=== PATIENT | female | born 2000 | race Caucasian/White ===

== ENCOUNTER 2020-04-02 10:43 | Inpatient (IN) | payer BC ==
[~2020-04-02] VITALS: Ht 157.5 cm; Wt 67.1 kg
[2020-04-02 11:40] VITALS: BP 108/65
[2020-04-02] MEDS ORDERED: HYDROcodone/APAP 7.5/325 MG 1 TAB ONE (12:09)
[2020-04-02] MEDS: NACL 0.9% 1,000 ML IV SCH ×2 (13:10→20:40)
[2020-04-02 18:03] LABS: BASOPHILS # (AUTO) 0.1 K/uL (0.00-0.22); BASOPHILS % (AUTO) 0.5 % (0.0-2.0); EOSINOPHILS % (AUTO) 0.1 % (0.0-4.0); HEMATOCRIT 35.5 % (36-48); HEMOGLOBIN 11.8 g/dL (12.0-16.0); LYMPHOCYTES # (AUTO) 2.4 K/uL (2.5-16.5); MEAN CORPUSCULAR HEMOGLOBIN 30 pg (27-31); MEAN CORPUSCULAR HGB CONC 33 g/dL (33-37); MEAN CORPUSCULAR VOLUME 90.7 fL (80-94); MONOCYTES # (AUTO) 0.5 K/uL (0.8-1.0); MONOCYTES % (AUTO) 3.8 % (1.7-9.3); NEUTROPHILS # (AUTO) 9.7 K/uL (1.8-7.7); NEUTROPHILS % (AUTO) 76.6 % (42.2-75.2); PLATELET COUNT (AUTO) 252 K/uL (140-450); RED BLOOD CELL COUNT(AUTO) 3.92 MIL/uL (4.20-5.40); RED CELL DISTRIBUTION WIDTH 13.7 % (11.6-13.7); WHITE BLOOD COUNT (AUTO) 12.7 K/uL (4.8-10.8)
[2020-04-02 18:18] LABS: ANION GAP 15.7 (8-16); CARBON DIOXIDE 23.1 mmol/L (21-32); CREATININE 0.5 mg/dL (0.6-1.3); POTASSIUM 3.8 mmol/L (3.5-5.1); TOTAL BILIRUBIN 0.3 mg/dL (0.0-1.0)
[2020-04-02 20:36] LABS: APPEARANCE,URINE CLEAR (CLEAR); BILIRUBIN,URINE NEGATIVE (NEGATIVE); BLOOD, URINE NEGATIVE (NEGATIVE); COLOR,URINE YELLOW (YELLOW); LEUKOCYTE ESTERASE ,URINE TRACE (NEGATIVE); NITRITE, URINE NEGATIVE (NEGATIVE); PH,URINE 5.5 (5.0-9.0); UGLUCOSE NEGATIVE (NEGATIVE)
[2020-04-03] MEDS: NACL 0.9% 1,000 ML IV SCH (04:37)
--- NOTE | 2020-04-03 08:48 | NUR ---
PATIENT HAS BEEN SCREENED AND CATEGORIZED LOW NUTRITION RISK. PATIENT WILL BE SEEN WITHIN 7 DAYS OF ADMISSION. 04/09/[address]
[2020-04-03] MEDS ORDERED: cefTRIAXone 1,000 MG VIAL ONE (10:38)
== END 2020-04-03 12:10 | disposition home or self-care (01) | DRG 566 ==
LOC: MFCC 10:43 → OBSVTOIN 17:15
PROVIDERS: ADMIT Obstetrics & Gynecology; ATTEND Obstetrics & Gynecology
DX: O98.513 Other viral diseases complicating pregnancy, third trimester (principal); O41.03X0 Oligohydramnios, third trimester, not applicable or unspecified; O23.43 Unspecified infection of urinary tract in pregnancy, third trimester; Z3A.37 37 weeks gestation of pregnancy; U07.1 COVID-19
CPT/HCPCS: G0378 ×7; 36415; 76815; 80053; 81003; 85025; 86592; 86886; 86900; 86901; 87653-90; J0696; J7060; Q0092; U0003-CS

== ENCOUNTER 2020-04-13 16:13 | Observation (INO) | payer BC, SELFPAY ==
[~2020-04-13] VITALS: Ht 157.5 cm; Wt 67.1 kg
[2020-04-13 17:25] VITALS: BP 110/70
== END 2020-04-13 18:25 | disposition home or self-care (01) ==
LOC: MFCC 16:13
PROVIDERS: ADMIT Obstetrics & Gynecology; ATTEND Obstetrics & Gynecology
DX: Z34.93 Encounter for supervision of normal pregnancy, unspecified, third trimester (principal); Z20.828 Contact with and (suspected) exposure to other viral communicable diseases; Z3A.38 38 weeks gestation of pregnancy
CPT/HCPCS: 59025; 87426; G0378

== ENCOUNTER 2020-04-21 07:54 | Inpatient (IN) | payer BC, SELFPAY ==
[~2020-04-21] VITALS: Ht 153.7 cm; Wt 67.6 kg
--- NOTE | 2020-04-21 08:48 | NUR ---
PATIENT HAS BEEN SCREENED AND CATEGORIZED LOW NUTRITION RISK. PATIENT WILL BE SEEN WITHIN 7 DAYS OF ADMISSION. 04/27/[address]
[2020-04-21] MEDS ORDERED: OXYTOCIN 20 UNITS in LACTATED RINGERS 1,000 ML IV SCH (09:00)
[2020-04-21] MEDS ORDERED: MORPHINE SULFATE 10 MG/ML VIAL IVP PRN (09:00)
[2020-04-21] MEDS ORDERED: PROMETHAZINE 25 MG/ML VIAL IVP PRN (09:00)
[2020-04-21] MEDS ORDERED: METHYLERGONOVINE 0.2 MG/ML AMP IM SCH (09:05)
[2020-04-21] MEDS ORDERED: MISOPROSTOL 25 MCG TAB ONE (09:36)
[2020-04-21 09:37] LABS: BASOPHILS # (AUTO) 0.1 K/uL (0.00-0.22); BASOPHILS % (AUTO) 0.6 % (0.0-2.0); EOSINOPHILS % (AUTO) 0.3 % (0.0-4.0); HEMATOCRIT 34.4 % (36-48); HEMOGLOBIN 11.5 g/dL (12.0-16.0); LYMPHOCYTES # (AUTO) 1.9 K/uL (2.5-16.5); LYMPHOCYTES % (AUTO) 16.2 % (20.5-51.1); MEAN CORPUSCULAR HEMOGLOBIN 30 pg (27-31); MEAN CORPUSCULAR HGB CONC 34 g/dL (33-37); MEAN CORPUSCULAR VOLUME 90.1 fL (80-94); MONOCYTES # (AUTO) 0.5 K/uL (0.8-1.0); MONOCYTES % (AUTO) 4.3 % (1.7-9.3); NEUTROPHILS # (AUTO) 9.3 K/uL (1.8-7.7); NEUTROPHILS % (AUTO) 78.6 % (42.2-75.2); PLATELET COUNT (AUTO) 191 K/uL (140-450); RED BLOOD CELL COUNT(AUTO) 3.82 MIL/uL (4.20-5.40); RED CELL DISTRIBUTION WIDTH 13.8 % (11.6-13.7); WHITE BLOOD COUNT (AUTO) 11.9 K/uL (4.8-10.8)
[2020-04-21 09:48] LABS: ALBUMIN 2.7 g/dL (3.4-5.0); ANION GAP 14.1 (8-16); CARBON DIOXIDE 24.5 mmol/L (21-32); CREATININE 0.6 mg/dL (0.6-1.3); POTASSIUM 3.6 mmol/L (3.5-5.1); TOTAL BILIRUBIN 0.2 mg/dL (0.0-1.0)
[2020-04-21] MEDS: LACTATED RINGERS 1,000 ML IV SCH ×2 (10:11→16:41)
[2020-04-21 10:18] VITALS: BP 124/67
[2020-04-21 11:24] LABS: APPEARANCE,URINE CLEAR (CLEAR); BILIRUBIN,URINE NEGATIVE (NEGATIVE); BLOOD, URINE 2+ (NEGATIVE); COLOR,URINE YELLOW (YELLOW); LEUKOCYTE ESTERASE ,URINE TRACE (NEGATIVE); NITRITE, URINE NEGATIVE (NEGATIVE); PH,URINE 7.5 (5.0-9.0); UGLUCOSE NEGATIVE (NEGATIVE)
[2020-04-21 11:37] LABS: WBC,URINE 0-5 /HPF (0-5)
[2020-04-21] MEDS ORDERED: MISOPROSTOL 25 MCG TAB VG SCH (12:00)
[2020-04-21] MEDS ORDERED: OXYTOCIN 20 UNITS/LR PREMIX 1,000 ML IV ONE (14:37)
[2020-04-22] MEDS: LACTATED RINGERS 1,000 ML IV SCH ×2 (09:47→17:18)
[2020-04-22] MEDS ORDERED: ROPIVACAINE 0.2%/NS PREMIX 200 ML EPI ONE (10:26)
[2020-04-22] MEDS ORDERED: ROPIVACAINE 0.2%/NS PREMIX 200 ML EPI SCH (13:35)
[2020-04-22] MEDS ORDERED: IBUPROFEN 600 MG TAB PO PRN (22:35)
[2020-04-22] MEDS ORDERED: BENZOCAINE/MENTHOL 20%-0.5% 60 GM CAN TP PRN (22:35)
[2020-04-22] MEDS ORDERED: METHYLERGONOVINE 0.2 MG/ML AMP IM PRN (22:35)
[2020-04-22] MEDS ORDERED: OXYTOCIN 10 UNITS/ML VIAL IM PRN (22:35)
[2020-04-22] MEDS ORDERED: oxyCODONE/APAP 5/325 MG 1 TAB TAB PO PRN (22:35)
[2020-04-23] MEDS: IBUPROFEN 800 MG TAB PO PRN ×2 (02:25→23:28)
[2020-04-23 05:42] LABS: HEMATOCRIT 28.4 % (36-48); HEMOGLOBIN 9.5 g/dL (12.0-16.0)
[2020-04-23] MEDS ORDERED: MORPHINE SULFATE 5 MG/ML VIAL IVP PRN (19:35)
[2020-04-24] MEDS ORDERED: FERR-18 PO (11:25)
[2020-04-24] MEDS ORDERED: IBUP-2213 PO (11:26)
== END 2020-04-24 13:40 | disposition home or self-care (01) | DRG 560 ==
LOC: MFCC 07:54 → OBSVTOIN 17:43 → MFCC 04-22 21:25
PROVIDERS: ADMIT Obstetrics & Gynecology; ATTEND Obstetrics & Gynecology
PROC: 10907ZC Drainage of Amniotic Fluid, Therapeutic from Products of Conception, Via Natural or Artificial Opening (ICD-10-PCS; principal; 2020-04-22)
PROC: 3E0R3BZ Introduction of Anesthetic Agent into Spinal Canal, Percutaneous Approach (ICD-10-PCS; 2020-04-22)
PROC: 00HU33Z Insertion of Infusion Device into Spinal Canal, Percutaneous Approach (ICD-10-PCS; 2020-04-22)
PROC: 0W8NXZZ Division of Female Perineum, External Approach (ICD-10-PCS; 2020-04-22)
PROC: 0HQ9XZZ Repair Perineum Skin, External Approach (ICD-10-PCS; 2020-04-22)
PROC: 10E0XZZ Delivery of Products of Conception, External Approach (ICD-10-PCS; 2020-04-22)
DX: O70.0 First degree perineal laceration during delivery (principal); Z37.0 Single live birth; Z3A.40 40 weeks gestation of pregnancy
CPT/HCPCS: 36415; 59409; 80053; 81001; 85018; 85025; 86592; 86886; 86900; 86901; G0378; J2590; J2795; J7120

== ENCOUNTER 2020-12-12 12:39 | Emergency (ER) | payer BC, SELFPAY ==
[~2020-12-12] VITALS: Ht 157.5 cm; Wt 59.0 kg
[2020-12-12 12:39] VITALS: BP 115/71
[~2020-12-12 12:39] MED LIST: FERR-18 PO; IBUP-2213 PO
--- NOTE | 2020-12-12 12:39 | NUR ---
Patient BIBA ALS, transferred to bed 4. RN evaluating the patient at bedside.
--- NOTE | 2020-12-12 12:43 | NUR ---
20/F BIBA WITH C/O [facility]ARP 8/10 MENSTRUAL CRAMPS AFTER STARTING HER PERIOD THIS MORNING. PATIENT STATES SHE WAS AT HER HUSBANDS [employer] HOUSE WHEN SHE BEGAN TO FEEL DIZZY AND LIGHT HEADED AND NUMBNESS IN HER HANDS AND FEET, STATES HER FAMILY GAVE HER A COKE TO DRINK AND SHE BEGAN TO FEEL BETTER. PATIENT STATES SHE IS NOT BLEEDING MORE THAN HER USUAL FOR HER PERIOD BUT STATES THESE ARE THE WORST CRAMPS SHES FELT BEFORE. PATIENT DENIES ANY LOC AND STATES SHE REMEMBERS THE ENTIRE EPISODE.
[2020-12-12 13:01] LABS: HEMATOCRIT 41.5 % (36-48); HEMOGLOBIN 13.6 g/dL (12.0-16.0); MEAN CORPUSCULAR HEMOGLOBIN 29 pg (27-31); MEAN CORPUSCULAR HGB CONC 33 g/dL (33-37); MEAN CORPUSCULAR VOLUME 87.2 fL (80-94); PLATELET COUNT (AUTO) 313 K/uL (140-450); RED BLOOD CELL COUNT(AUTO) 4.76 MIL/uL (4.20-5.40); RED CELL DISTRIBUTION WIDTH 14.3 % (11.6-13.7); WHITE BLOOD COUNT (AUTO) 22.1 K/uL (4.8-10.8)
--- NOTE | 2020-12-12 13:06 | NUR ---
Patient being evaluated by physician at bedside.
[2020-12-12 13:27] LABS: ALBUMIN 4.6 g/dL (3.4-5.0); ANION GAP 13.8 (8-16); CARBON DIOXIDE 25.7 mmol/L (21-32); CREATININE 0.8 mg/dL (0.6-1.3); POTASSIUM 3.5 mmol/L (3.5-5.1); TOTAL BILIRUBIN 0.3 mg/dL (0.0-1.0)
--- NOTE | 2020-12-12 13:30 | NUR ---
Lab at bedside.
--- NOTE | 2020-12-12 14:09 | NUR ---
Dr. Vanessa is reevaluating the patient at bedside.
[2020-12-12 14:28] VITALS: BP 115/71
--- NOTE | 2020-12-12 14:28 | NUR ---
Patient discharged with v/s stable. Written and verbal after care instructions given and explained. Patient verbalized understanding. Ambulatory with steady gait. All questions addressed prior to discharge. Advised to follow up with PMD.
[2020-12-12 15:04] LABS: LYMPHOCYTES % (MANUAL) 8 % (20-46); MONOCYTES % (MANUAL) 4 % (5-12)
== END 2020-12-12 14:28 | disposition home or self-care (01) ==
LOC: MED 12:39
DX: R55 Syncope and collapse (principal); R10.30 Lower abdominal pain, unspecified
CPT/HCPCS: 36415; 80053; 81002; 81025; 85025; 99283

== ENCOUNTER 2022-03-14 04:55 | Observation (INO) | payer BC ==
[~2022-03-14] VITALS: Ht 157.5 cm; Wt 65.8 kg
[2022-03-14 06:25] VITALS: BP 110/77
[2022-03-14] MEDS ORDERED: METHYLERGONOVINE 0.2 MG/ML AMP IM PRN (21:35)
[2022-03-14] MEDS ORDERED: CARBOPROST 250 MCG/ML AMP IM PRN (21:35)
[2022-03-14] MEDS ORDERED: OXYTOCIN 20 UNITS in LACTATED RINGERS 1,000 ML IV SCH (21:35)
[2022-03-14] MEDS ORDERED: ONDANSETRON 4 MG/2 ML VIAL IVP PRN (21:35)
[2022-03-14] MEDS ORDERED: NALBUPHINE 10 MG/ML AMP IVP PRN (21:35)
[2022-03-14] MEDS ORDERED: LACTATED RINGERS 1,000 ML IV SCH (21:35)
[2022-03-14 21:45] LABS: BASOPHILS # (AUTO) 0.1 K/uL (0.00-0.22); BASOPHILS % (AUTO) 0.8 % (0.0-2.0); EOSINOPHILS % (AUTO) 0.1 % (0.0-4.0); HEMATOCRIT 33.4 % (36-48); HEMOGLOBIN 10.6 g/dL (12.0-16.0); LYMPHOCYTES # (AUTO) 2.6 K/uL (2.5-16.5); LYMPHOCYTES % (AUTO) 19.5 % (20.5-51.1); MEAN CORPUSCULAR HEMOGLOBIN 27 pg (27-31); MEAN CORPUSCULAR HGB CONC 32 g/dL (33-37); MEAN CORPUSCULAR VOLUME 83.6 fL (80-94); MONOCYTES # (AUTO) 0.5 K/uL (0.8-1.0); MONOCYTES % (AUTO) 3.7 % (1.7-9.3); NEUTROPHILS # (AUTO) 10.1 K/uL (1.8-7.7); NEUTROPHILS % (AUTO) 75.9 % (42.2-75.2); PLATELET COUNT (AUTO) 269 K/uL (140-450); RED BLOOD CELL COUNT(AUTO) 3.99 MIL/uL (4.20-5.40); RED CELL DISTRIBUTION WIDTH 13.8 % (11.6-13.7); WHITE BLOOD COUNT (AUTO) 13.4 K/uL (4.8-10.8)
[2022-03-14 22:44] LABS: ALBUMIN 2.9 g/dL (3.4-5.0); CARBON DIOXIDE 20.8 mmol/L (21-32); CREATININE 0.5 mg/dL (0.6-1.3); POTASSIUM 3.8 mmol/L (3.5-5.1); TOTAL BILIRUBIN 0.3 mg/dL (0.0-1.0)
[2022-03-16 07:08] LABS: HEPATITIS B SURFACE ANTIGEN Negative (Negative)
== END 2022-03-14 10:20 | disposition home or self-care (01) ==
LOC: MLD 04:55
PROVIDERS: ADMIT Obstetrics & Gynecology; ATTEND Obstetrics & Gynecology
DX: O99.891 Other specified diseases and conditions complicating pregnancy (principal); M54.9 Dorsalgia, unspecified; O26.893 Other specified pregnancy related conditions, third trimester; R10.9 Unspecified abdominal pain; Z3A.37 37 weeks gestation of pregnancy
CPT/HCPCS: 36415; 80053; 85025; 86592; 86762; 87340; G0378; 59025; 81000; J2590; J7120

== ENCOUNTER 2022-03-14 16:05 | Inpatient (IN) | payer BC ==
[~2022-03-14] VITALS: Ht 157.5 cm; Wt 65.8 kg
[2022-03-14] MEDS ORDERED: METHYLERGONOVINE 0.2 MG/ML AMP IM PRN (16:35)
[2022-03-14] MEDS: LACTATED RINGERS 1,000 ML IV SCH ×3 (16:35→23:17)
[2022-03-14] MEDS ORDERED: CARBOPROST 250 MCG/ML AMP IM PRN (16:35)
[2022-03-14] MEDS ORDERED: OXYTOCIN 20 UNITS in LACTATED RINGERS 1,000 ML IV SCH (16:35)
[2022-03-14] MEDS ORDERED: ROPIVACAINE 0.2%/NS PREMIX 200 ML EPI ONE (16:40)
[2022-03-14 16:54] LABS: BASOPHILS % (AUTO) 0.3 % (0.0-2.0); EOSINOPHILS % (AUTO) 0.1 % (0.0-4.0); HEMATOCRIT 32.7 % (36-48); HEMOGLOBIN 10.6 g/dL (12.0-16.0); LYMPHOCYTES # (AUTO) 2.4 K/uL (2.5-16.5); LYMPHOCYTES % (AUTO) 18.6 % (20.5-51.1); MEAN CORPUSCULAR HEMOGLOBIN 27 pg (27-31); MEAN CORPUSCULAR HGB CONC 33 g/dL (33-37); MEAN CORPUSCULAR VOLUME 83.3 fL (80-94); MONOCYTES # (AUTO) 0.5 K/uL (0.8-1.0); NEUTROPHILS # (AUTO) 9.9 K/uL (1.8-7.7); PLATELET COUNT (AUTO) 274 K/uL (140-450); RED BLOOD CELL COUNT(AUTO) 3.92 MIL/uL (4.20-5.40); RED CELL DISTRIBUTION WIDTH 13.9 % (11.6-13.7); WHITE BLOOD COUNT (AUTO) 12.8 K/uL (4.8-10.8)
[2022-03-14 16:55] LABS: APPEARANCE,URINE SL CLOUDY (CLEAR); BILIRUBIN,URINE NEGATIVE (NEGATIVE); BLOOD, URINE NEGATIVE (NEGATIVE); COLOR,URINE YELLOW (YELLOW); LEUKOCYTE ESTERASE ,URINE NEGATIVE (NEGATIVE); NITRITE, URINE NEGATIVE (NEGATIVE); UGLUCOSE NEGATIVE (NEGATIVE)
[2022-03-14] MEDS ORDERED: ROPIVACAINE 0.2%/NS PREMIX 200 ML EPI SCH (17:00)
[2022-03-14 17:07] LABS: PROTHROMBIN TIME 8.7 secs (10.8-13.4)
[2022-03-14 17:08] LABS: ALBUMIN 2.8 g/dL (3.4-5.0); ANION GAP 13.2 (8-16); CARBON DIOXIDE 23.6 mmol/L (21-32); CREATININE 0.4 mg/dL (0.6-1.3); POTASSIUM 3.8 mmol/L (3.5-5.1); TOTAL BILIRUBIN 0.3 mg/dL (0.0-1.0)
[2022-03-15] MEDS: LACTATED RINGERS 1,000 ML IV SCH ×2 (03:38→08:13)
[2022-03-15] MEDS ORDERED: OXYTOCIN 20 UNITS/LR PREMIX 1,000 ML IV ONE (05:42)
[2022-03-15] MEDS ORDERED: ROPIVACAINE 0.2%/NS PREMIX 200 ML EPI ONE (05:49)
--- NOTE | 2022-03-15 09:04 | NUR ---
PATIENT HAS BEEN SCREENED AND CATEGORIZED LOW NUTRITION RISK. PATIENT WILL BE SEEN WITHIN 7 DAYS OF ADMISSION. 03/21/[address]
[2022-03-15] MEDS ORDERED: METHYLERGONOVINE 0.2 MG TAB PO PRN (10:15)
[2022-03-15] MEDS ORDERED: IBUPROFEN 800 MG TAB PO PRN (10:15)
[2022-03-15] MEDS ORDERED: METHYLERGONOVINE 0.2 MG/ML AMP IM PRN (10:15)
[2022-03-15] MEDS ORDERED: TEMAZEPAM 15 MG CAP PO PRN (10:15)
[2022-03-15] MEDS ORDERED: BENZOCAINE/MENTHOL 20%-0.5% 60 GM CAN TP PRN (10:15)
[2022-03-15] MEDS ORDERED: oxyCODONE/APAP 5/325 MG 1 TAB TAB PO PRN ×2 (10:15)
[2022-03-15] MEDS ORDERED: DOCUSATE SOD/SENNA 50/8.6 MG 1 TAB PO SCH (21:00)
[2022-03-16 08:45] LABS: HEMATOCRIT 30.7 % (36-48)
== END 2022-03-17 15:15 | disposition home or self-care (01) | DRG 560 ==
LOC: OBSVTOIN 16:05 → MLD 16:05 → MFCC 03-15 12:50
PROVIDERS: ADMIT Obstetrics & Gynecology; ATTEND Obstetrics & Gynecology
PROC: 10D07Z6 Extraction of Products of Conception, Vacuum, Via Natural or Artificial Opening (ICD-10-PCS; principal; 2022-03-15)
PROC: 3E0R3BZ Introduction of Anesthetic Agent into Spinal Canal, Percutaneous Approach (ICD-10-PCS; 2022-03-15)
PROC: 00HU33Z Insertion of Infusion Device into Spinal Canal, Percutaneous Approach (ICD-10-PCS; 2022-03-15)
DX: O76 Abnormality in fetal heart rate and rhythm complicating labor and delivery (principal); Z37.0 Single live birth; Z20.822 Contact with and (suspected) exposure to COVID-19; Z3A.37 37 weeks gestation of pregnancy
CPT/HCPCS: 36415; 51702; 59409; 80053; 81003; 85018; 85025; 85610; 85730; 86592; 86886; 86900; 86901; J2590; J2795